=== PATIENT | female | born 1985 | race Caucasian/White ===

== ENCOUNTER 2017-09-01 02:55 | Inpatient (IN) | payer BC ==
[2017-09-01] MEDS: LACTATED RINGERS 1,000 ML IV SCH ×3 (03:15→06:30)
[2017-09-01] MEDS ORDERED: LIDOCAINE 1% (PF) 10 MG/ML (30 ML SDV) SQ PRN (03:37)
[2017-09-01] MEDS ORDERED: CARBOPROST TROMETHAMINE 250 MCG/ML 1 ML AMP IM PRN (03:37)
[2017-09-01] MEDS ORDERED: OXYTOCIN 10 UNIT/ML 1 ML VIAL IM PRN (03:37)
[2017-09-01] MEDS ORDERED: METHYLERGONOVINE 0.2 MG/ML 1 ML AMP IM PRN (03:37)
[2017-09-01] MEDS ORDERED: TERBUTALINE 1 MG/ML VIAL SQ PRN (03:37)
[2017-09-01] MEDS ORDERED: BUTORPHANOL 1 MG/ML 1 ML VIAL IV PRN (03:39)
[2017-09-01] MEDS ORDERED: fentaNYL (PF) 50 MCG/ML 5 ML AMP ONE (03:43)
[2017-09-01] MEDS ORDERED: SODIUM CHLORIDE 0.9% 100 ML BAG ONE (03:43)
[2017-09-01] MEDS ORDERED: BUPIVACAINE (PF) 0.25% 30 ML VIAL ONE (03:43)
--- NOTE | 2017-09-01 03:45 | P.HPOB ---
History of Present Illness H&P Date: 09/01/17 Chief Complaint: 41-0/7 weeks, labor The patient is a 31-year-old 4 para 2011 admitted at 41-0/7 weeks as established by last menstrual period and confirmed by second trimester ultrasound. She is admitted in active labor with all signs reassuring. Her has been uncomplicated though she is hypothyroid but has been stable throughout the . Group B strep status is negative. Obstetrical history 4 para 2011 with 2 term vaginal deliveries without complications. She did have one early miscarriage. Current statistics are listed in history of present illness. EDC of 08/25/2017 was established by last menstrual period and confirmed by 19 week ultrasound. Laboratory workup demonstrates a blood type of O+ with a negative antibody screen. Rubella status is immune. The remainder of the laboratory workup was within normal limits. Second trimester Glucola was within normal limits and group B strep status is negative. Gynecologic history is unremarkable with no history of any infections to include STDs. Review of Systems Review of systems is confined to history of present illness. Past Medical History Past Medical History: Thyroid Disorder Additional Past Medical History / Comment(s): History of Any Multi-Drug Resistant Organisms: None Reported Past Surgical History: No Surgical Hx Reported Past Anesthesia/Blood Transfusion Reactions: No Reported Reaction Past Psychological History: Anxiety Smoking Status: Never smoker Past Alcohol Use History: None Reported Past Drug Use History: None Reported - Past Family History Mother Family Medical History: Unable to Obtain Medications and Allergies Home Medications Medication Instructions Recorded Confirmed Type Levothyroxine Sodium [Synthroid] 25 mcg PO DAILY 09/09/14 12/08/14 History Pnv 39/Iron/Folic/Docusate/Dha 1 tab PO DAILY 09/09/14 12/08/14 History [Tony-Prex Dha Cap] Allergies Allergy/AdvReac Type Severity Reaction Status Date / Time cefaclor [From [facility]] Allergy Unknown Unknown Verified 09/01/17 03:38 Childhood Exam - Vital Signs Vital signs: Intake and Output 08/31/17 08/31/17 09/01/17 14:59 22:59 06:59 Other: Weight 79.832 kg Patient Weight 09/01/17 06:59 Weight 79.832 kg In general, this is a well-developed, well-nourished white female in no acute distress. Her heart has a regular rhythm and rate without murmur. Her lungs are clear to auscultation bilaterally in all keita. Her abdomen is gravid, nondistended, has normal active bowel sounds, is soft, nontender, and without any palpable masses aside from uterine fundus. Her extremities are without any cyanosis, clubbing, or edema and are nontender to palpation bilaterally. Digital cervical examination demonstrates her cervix to approximately 8 cm dilated, 80-90% effaced, with the vertex in presentation at -2 station. There is a bulging bag of water left intact until an epidural catheter can be placed. Assessment and Plan (1) Active labor at term Status: Acute Plan: The patient is admitted for active management of labor. As she is not currently rapidly progressing, we will attempt place an epidural catheter for analgesia. She will continue to have close maternal and surveillance and expectant management will be practiced. She will undergo artificial rupture of membranes unless this occurs spontaneously shortly after her epidural catheter was placed.
[2017-09-01 04:01] LABS: Basophils % (A) 0 %; CH 32.1; CHCM 33.8; Eosinophils # (A) 0.1 k/uL (0-0.7); Eosinophils % (A) 1 %; HCT 41.8 % (34.0-46.0); HDW 2.25; HGB 14.2 gm/dL (11.4-16.0); Luc % (Auto) 2; Lymphocytes # (A) 2.2 k/uL (1.0-4.8); Lymphocytes % (A) 18 %; MCH 32.3 pg (25.0-35.0); MCHC 33.9 g/dL (31.0-37.0); MCV 95.3 fL (80.0-100.0); Mean Platelet Volume 8.1; Monocytes # (A) 0.4 k/uL (0-1.0); Monocytes % (A) 3 %; Neutrophils # (A) 9.7 k/uL (1.3-7.7); Neutrophils % (A) 76 %; RBC 4.39 m/uL (3.80-5.40); WBC 12.7 k/uL (3.8-10.6); WBC (Perox) 12.38
[2017-09-01 05:17] VITALS: BMI 31.1
[2017-09-01] MEDS ORDERED: OXYTOCIN 20 UNITS/1000 ML NS 1,000 ML IV SCH ×2 (06:30→09:00)
[2017-09-01] MEDS ORDERED: BUPIVACAINE (PF) 0.25% 25 ML, fentaNYL (PF) 200 MCG in SODIUM CHLORIDE 0.9% 71 ML EPIDURAL ONE (07:19)
[2017-09-01] MEDS ORDERED: WITCH HAZEL 1 EACH MED..PAD TOPICAL PRN (08:58)
[2017-09-01] MEDS ORDERED: HYDROCORTISONE 2.5% RECTAL CREAM 30 GM TUBE RECTAL PRN (08:58)
[2017-09-01] MEDS ORDERED: SIMETHICONE 80 MG CHEWABLE PO PRN (08:58)
[2017-09-01] MEDS ORDERED: Acetaminophen-Codeine 300-30mg TAB PO PRN ×2 (08:58)
[2017-09-01] MEDS ORDERED: diphenhydrAMINE 25 MG CAP PO PRN (08:58)
[2017-09-01] MEDS ORDERED: BENZOCAINE/MENTHOL SPRAY 1 GM/SPRAY AEROSOL TOPICAL PRN (08:58)
[2017-09-01] MEDS ORDERED: LANOLIN CREAM 5 GM TUBE TOPICAL PRN (08:58)
[2017-09-01] MEDS ORDERED: ZOLPIDEM 5 MG TAB PO PRN (08:58)
[2017-09-01] MEDS ORDERED: diphenhydrAMINE 50 MG/ML 1 ML VIAL IVP PRN ×2 (08:58)
[2017-09-01] MEDS ORDERED: ACETAMINOPHEN TAB 325 MG TAB PO PRN (08:58)
[2017-09-01] MEDS ORDERED: diphenhydrAMINE 50 MG CAP PO PRN (08:58)
--- NOTE | 2017-09-01 09:03 | P.PROBDLV ---
Vaginal Delivery Note - . Vaginal Delivery Note: The patient is a 31-year-old 4 para 2011 admitted at 41-0/7 weeks by good dating parameters. She is admitted in active labor found to be approximately 8 cm dilated with a bulging bag of water. Her has been uncomplicated and group B strep status is negative and all signs upon admission a reassuring. She had an epidural catheter placed for analgesia and then underwent artificial rupture of membranes of clear fluid. She then took several hours to reach anterior lip at which time the anterior lip was beginning to swell. I was able to reduce the anterior lip and have her push at which time the baby rotated and descended significantly. She then pushed over the next 1 contraction to a normal spontaneous vaginal delivery of a viable 7 lbs. 13 oz. baby girl with Apgars of 9 at 1 minute and 9 at 5 minutes delivered in the direct occiput anterior position. The placenta was delivered spontaneously, intact, and grossly normal with a grossly normal, marginally inserted three-vessel cord. There was a very small first-degree midline posterior laceration which was repaired with a single [id number] stitch of 3-0 chromic catgut. There were no other lacerations of the perineum, vagina, or cervix. There were no complications. All sponge, instrument, and needle counts were correct. Both mother and are resting comfortably in recovery.
[2017-09-01] MEDS: IBUPROFEN 600 MG TAB PO PRN ×2 (09:15→19:42)
[2017-09-01] MEDS: SENNOSIDES-DOCUSATE SODIUM 1 EACH TAB PO SCH (20:18)
[2017-09-02] MEDS: IBUPROFEN 600 MG TAB PO PRN (03:37)
--- NOTE | 2017-09-02 08:00 | P.DS ---
Providers Date of admission: 09/01/17 03:12 Expected date of discharge: 09/02/17 Attending physician: Jeanna Paiz Primary care physician: Jeanna Paiz - Discharge Diagnosis(es) (1) Active labor at term Current Visit: Yes Status: Acute (2) Normal vaginal delivery Current Visit: Yes Status: Acute Hospital Course: The patient is a 31-year-old 4 para 2011 admitted at 41-0/7 weeks by good dating parameters. She is admitted in active labor with all signs reassuring. Her was uncomplicated and group B strep status is negative. On labor and delivery, she had an epidural catheter placed for analgesia and then underwent artificial rupture of membranes for clear fluid. She ultimately progressed to complete and then pushed to a normal spontaneous vaginal delivery of a viable 7 lbs. 13 oz. baby girl with Apgars of 9 at 1 minute and 9 at 5 minutes. Her course was entirely unremarkable with vital signs remaining stable and her temperature was afebrile throughout. She was deemed stable for discharge by day #1 and was discharged home to follow-up in the office in 6 weeks' time routinely. Discharge instructions included calling for any significantly increased bleeding or foul- smelling lochia, significantly increased fever or abdominal pain, perineal complaints, breast complaints, or anything else that concerned her. She is additionally instructed to have nothing in the vagina for at least 6 weeks time to include intercourse. She understood all of her instructions and agrees to follow up as noted above. Discharge medications included [id number] analgesic pain medications as well as continued vitamins as she has opted to breast-feed. Maternal blood type is O+ and rubella status is immune. Procedures: #1. Epidural analgesia #2. Artificial rupture of membranes #3. Normal spontaneous vaginal delivery #4. Repair of first-degree perineal laceration Patient Condition at Discharge: Good Plan - Discharge Summary New Discharge Prescriptions: No Action Pnv 39/Iron/Folic/Docusate/Dha [Tony-Prex Dha Cap] 1 tab PO DAILY Levothyroxine Sodium [Synthroid] 25 mcg PO DAILY Discharge Medication List Levothyroxine Sodium [Synthroid] 25 mcg PO DAILY 09/09/14 [History] Pnv 39/Iron/Folic/Docusate/Dha [Tony-Prex Dha Cap] 1 tab PO DAILY [History] Follow up Appointment(s)/Referral(s): Jeanna Paiz MD [Primary Care Provider] - 6 Weeks Discharge Disposition: HOME SELF-CARE
[2017-09-02 10:23] VITALS: BP 109/74; PULSE 72; RESP 20; TEMP 98.4
[2017-09-02] MEDS: SENNOSIDES-DOCUSATE SODIUM 1 EACH TAB PO SCH (10:26)
== END 2017-09-02 11:20 | disposition home or self-care (01) | DRG 775 ==
LOC: FBPOP 02:55 → 4FBP 03:12
PROVIDERS: ADMIT Obstetrics & Gynecology; ATTEND Obstetrics & Gynecology
PROC: 10E0XZZ Delivery of Products of Conception, External Approach (ICD-10-PCS; principal; 2017-09-01)
PROC: 0HQ9XZZ Repair Perineum Skin, External Approach (ICD-10-PCS; 2017-09-01)
PROC: 00HU33Z Insertion of Infusion Device into Spinal Canal, Percutaneous Approach (ICD-10-PCS; 2017-09-01)
PROC: 3E0R3BZ Introduction of Anesthetic Agent into Spinal Canal, Percutaneous Approach (ICD-10-PCS; 2017-09-01)
DX: O70.0 First degree perineal laceration during delivery (principal); E03.9 Hypothyroidism, unspecified; O99.284 Endocrine, nutritional and metabolic diseases complicating childbirth; Z37.0 Single live birth; Z3A.41 41 weeks gestation of pregnancy; Z79.899 Other long term (current) drug therapy; Z86.59 Personal history of other mental and behavioral disorders; Z88.1 Allergy status to other antibiotic agents
CPT/HCPCS: 59025; 85025; 88307; 99213

== ENCOUNTER → 2020-01-15 | Outpatient (CLI) | payer BC ==
--- NOTE | 2020-01-15 10:22 | USB ---
Reason for exam: clinical finding. History: Family history of breast cancer in cousin at age 40 and breast cancer in cousin. Took hormonal contraceptives for 1 month beginning at age 18. US Breast LT Left complete breast ultrasound includes all four quadrants, the retroareolar region and axilla. Finding demonstrates no cystic or solid lesion seen. These results were verbally communicated with the patient and result sheet given to the patient on 01/15/20. ASSESSMENT: Negative, BI-RAD 1 RECOMMENDATION: Routine screening mammogram of both breasts at age 40. Manage on a clinical basis with regard to palpable abnormality.
--- NOTE | 2020-01-15 10:22 | MM ---
Reason for exam: clinical finding. History: Family history of breast cancer in cousin at age 40 and breast cancer in cousin. Took hormonal contraceptives for 1 month beginning at age 18. Physical Findings: Nurse Summary: 1cm nodule in the left breast at 2 o'clock (nurse lindy). MG 3D Diag Mammo W/Cad FRANCES Bilateral CC and MLO view(s) were taken. The breast tissue is heterogeneously dense. This may lower the sensitivity of mammography. There is no discrete abnormality including area of concern. BB marker left breast palpable abnormality. These results were verbally communicated with the patient and result sheet given to the patient on 01/15/20. ASSESSMENT: Negative, BI-RAD 1 RECOMMENDATION: Routine screening mammogram of both breasts at age 40. Manage on a clinical basis with regard to palpable on left breast.
== END | disposition home or self-care (01) ==
LOC: RADMAMWWP 08:20
PROVIDERS: ATTEND Obstetrics & Gynecology
DX: N63.21 Unspecified lump in the left breast, upper outer quadrant (principal)
CPT/HCPCS: 77062; 77066